=== PATIENT | female | born 1995 | race Caucasian/White ===

== ENCOUNTER 2024-08-29 20:25 | Emergency (ER) | payer OTHER ==
[~2024-08-29] VITALS: Ht 165.1 cm; Wt 40.8 kg
[2024-08-29] MEDS ORDERED: ACETAMINOPHEN 500 MG TABLET ONE (22:30)
[2024-08-29] MEDS: ACETAMINOPHEN 500 MG TABLET PO ONE (22:33)
[2024-08-29 23:28] VITALS: BP 122/85; TEMP 98.2; O2SAT 100
== END 2024-08-29 23:29 | disposition home or self-care (01) ==
LOC: ER 20:25
DX: S13.4XXA Sprain of ligaments of cervical spine, initial encounter (principal); M54.50 Low back pain, unspecified; V43.52XA Car driver injured in collision with other type car in traffic accident, initial encounter; Y93.89 Activity, other specified; Y92.488 Other paved roadways as the place of occurrence of the external cause; Y99.8 Other external cause status
CPT/HCPCS: A4606; A4663; A9150